=== PATIENT | male | born 1985 | race Caucasian/White ===

== ENCOUNTER → 2023-09-15 | Outpatient (REF) | payer OTHER ==
[2023-09-15 15:24] LABS: GC DNA AMPLIFICATION NEGATIVE (NEGATIVE)
== END ==
LOC: M LAB REF 13:14
PROVIDERS: ATTEND Registered Nurse
DX: R30.9 Painful micturition, unspecified (principal)

== ENCOUNTER → 2023-09-26 | Outpatient (CLI) | payer OTHER | LOC: M RAD 06:26 | PROVIDERS: ATTEND Registered Nurse | DX: N49.2 Inflammatory disorders of scrotum (principal) ==

== ENCOUNTER → 2024-05-15 | Outpatient (CLI) | payer OTHER ==
[~2024-05-15] MED LIST: GASTROGRAFIN SOLUTION 30ML As Ordered ONE; ISOVUE-370 76% 100ML VIAL As Ordered ONE
== END ==
LOC: M RAD 08:41
PROVIDERS: ATTEND Registered Nurse
DX: R10.32 Left lower quadrant pain (principal); R93.5 Abnormal findings on diagnostic imaging of other abdominal regions, including retroperitoneum
CPT/HCPCS: 74177; Q9963; Q9967

== ENCOUNTER → 2025-06-30 | Outpatient (CLI) | payer OTHER | LOC: M RAD 10:47 | PROVIDERS: ATTEND Registered Nurse | DX: K40.90 Unilateral inguinal hernia, without obstruction or gangrene, not specified as recurrent (principal) ==